=== PATIENT | male | born 1945 | race African-American/Black ===

== ENCOUNTER 2018-12-01 09:31 | Outpatient (CLI) | payer BC ==
--- NOTE | 2018-12-01 13:37 | NM ---
WHOLE BODY BONE SCAN: HISTORY: Malignant neoplasm of prostate. Prostate cancer was diagnosed 20 years ago. New onset of lef t hip and back pain. RADIOPHARMACEUTICAL: 33 mCi technetium 99m-MDP injected intravenously COMPARISON: None CORRELATION: None FINDINGS: There scattered degenerative activity in the appendicular skeleton. Uptake in the facial skeleton is likely due to periodontal disease/sinus disease. No other abnormal areas of tracer localization is seen in the skeleton to suggest metastatic disease. Tracer excretion through the kidneys is within normal limits. IMPRESSION: No scintigraphic evidence of osseous metastatic disease.
== END 2018-12-01 09:32 | disposition home or self-care (01) ==
LOC: NM 09:31
PROVIDERS: ATTEND Urology
DX: C61 Malignant neoplasm of prostate (principal); M79.10 Myalgia, unspecified site
CPT/HCPCS: 78306; A9503

== ENCOUNTER 2021-03-20 07:44 | Day surgery (SDC) | payer MEDICARE, BC ==
[2021-03-16 12:39] VITALS: BMI 29.9
[2021-03-20] MEDS ORDERED: PROPOFOL 200 MG/20 ML VIAL ONE (10:36)
[2021-03-20] MEDS ORDERED: Fentanyl 100 MCG/2 ML VIAL ONE (10:36)
== END 2021-03-20 12:50 | disposition home or self-care (01) ==
LOC: SDC 07:44
PROVIDERS: ATTEND Internal Medicine Gastroenterology
PROC: 0DB98ZX Excision of Duodenum, Via Natural or Artificial Opening Endoscopic, Diagnostic (ICD-10-PCS; principal; 2021-03-20)
PROC: 0D757ZZ Dilation of Esophagus, Via Natural or Artificial Opening (ICD-10-PCS; 2021-03-20)
DX: K21.9 Gastro-esophageal reflux disease without esophagitis (principal); R13.10 Dysphagia, unspecified; E11.9 Type 2 diabetes mellitus without complications; I10 Essential (primary) hypertension; E78.5 Hyperlipidemia, unspecified; I48.91 Unspecified atrial fibrillation; H40.9 Unspecified glaucoma; Z79.82 Long term (current) use of aspirin; Z79.84 Long term (current) use of oral hypoglycemic drugs; Z79.899 Other long term (current) drug therapy; Z88.1 Allergy status to other antibiotic agents; Z88.2 Allergy status to sulfonamides
CPT/HCPCS: 88305; J3010

== ENCOUNTER 2022-09-19 10:35 | Outpatient (CLI) | payer MEDICARE, BC | END 2022-09-19 10:36 | disposition home or self-care (01) | LOC: MRI 10:35 | PROVIDERS: ATTEND Psychiatry & Neurology Neurology | DX: R42 Dizziness and giddiness (principal) | CPT/HCPCS: 70551 ==